=== PATIENT | female | born 1990 | race Caucasian/White ===

== ENCOUNTER 2021-09-21 10:43 | Outpatient (CLI) | payer OTHER, SELFPAY ==
[2021-09-21 11:05] LABS: Hematocrit 36.4 % (37.0-47.0); Hemoglobin 12.5 g/dL (12.0-15.0); Mean Corpuscular HGB Conc 34.3 g/dl (32-36); Mean Corpuscular Hemoglobin 30.2 pg (26-34); Mean Corpuscular Volume 87.9 fl (80-100); Mean Platelet Volume 9.9 fl (7.4-10.4); Platelet Count Result 173 k/mm3 (150-375); Red Blood Count 4.14 M/mm3 (4.2-5.4); Red Cell Distribution Width 13.7 % (11.5-14.5); White Blood Count 12.4 K/mm3 (4.5-10.0)
[2021-09-21 13:53] LABS: Rapid Plasma Reagin Non-Reactive (NonReactive)
== END 2021-09-21 10:44 | disposition home or self-care (01) ==
LOC: ANHLAB 10:46
PROVIDERS: PCP Internal Medicine Infectious Disease; Visit Provider Obstetrics & Gynecology
DX: Z34.93 Encounter for supervision of normal pregnancy, unspecified, third trimester (principal); Z3A.00 Weeks of gestation of pregnancy not specified
CPT/HCPCS: 36415; 85027; 86592; 86850; 86900; 86901

== ENCOUNTER 2021-09-22 09:52 | Inpatient (IN) | payer OTHER, SELFPAY ==
--- NOTE | 2021-08-26 14:03 | PC.NURSE ---
Verified with OR schedule and patient-C/S on 09/22/21 at 1030 Patient given requisition for lab draw on 09/21/21
--- NOTE | 2021-09-19 07:38 | PM.IMHP ---
H&P: HPI History of Present Illness Date/Time: 09/19/21 07:38 Chief Complaint: Term with previous section Narrative: /31-year-old female admitted for repeat section at term her has been relatively unremarkable. Risks and benefits of section reviewed [facility] Family History Family History Grandparent Seizures Anemia Sibling Seizures Mother Anemia Social History Social History Substance use: never Spiritual care concerns: No Meds Home Medications and Allergies Home Medications Medication Instructions Recorded Confirmed Type prenat.vits,carmelina,spc-prue-thjyn 1 tablet PO DAILY 08/26/21 08/26/21 History Allergies Allergy/AdvReac Type Severity Reaction Status Date / Time No Known Allergies Allergy Verified 08/26/21 13:37 Exam : Speculum Exam - Vagina: normal appearance of the vagina Speculum Exam - Cervix: normal appearance of the cervix Bimanual exam- vagina & uterus: other (Soft gravid uterus) Assessment and Plan Assessment and plan (1) Term : Code(s): Z34.90 - Encounter for supervision of normal , unspecified, unspecified trimester Status: Acute Assessment and Plan: Repeat low-transverse section (2) Previous section: Code(s): Z98.891 - History of uterine scar from previous surgery Status: Acute Plan Repeat low-transverse section Additional Plan Repeat low-transverse section
[2021-09-22] VITALS (45 sets, daily range): BP systolic 90–107; BP diastolic 57–82; PULSE 58–133; RESP 14–18; TEMP 36.1–37; O2SAT 98–100; BMI 32.8
--- NOTE | 2021-09-22 07:26 | WPDHPUPDATE1 ---
History and Physical Update Update Date/Time: 09/22/21 07:26 History and Physical has been reviewed, including an updated exam of the patient. There are NO changes in the patient's condition. Risks, benefits, and alternatives have been discussed and questions answered. Patient agrees to proceed with procedure.
--- NOTE | 2021-09-22 10:16 | LDADM ---
This patient, Ni Marsh, was admitted to Labor/Delivery/Recovery 118 on 09/22/21 at 09:52. Plans for labor, pain management and were discussed with patient. Patient/family oriented to hospital policies and general routines including ID bracelet, bed and alarms, visiting hours, pain management, procedures, bathroom and other care routines, personal items, smoking policy, room service/diet and guest tray routines, infant security routines, and visiting hours. Patient/Family are encouraged to report perceived risks to care and to ask questions if they do not understand what they are told or what they should do. See OBIX for further documentation.
--- NOTE | 2021-09-22 10:22 | WPDANESEPPF ---
Anes - Initial Pre Proc Eval Procedure: Operation Date: 09/22/21 12:00 Proposed Procedures p Repeat Section - Pradeep Lewis MD Date/Time: 09/22/21 10:22 Surgeon: Pradeep Lewis MD Pre Op Diagnosis: C Section Patient Data Age: 31 Gender: F Height: 1.6 m Weight: 84 kg Last Vital Signs O2 Del Method Room Air 09/22/21 10:14 Allergies Allergy/AdvReac Type Severity Reaction Status Date / Time No Known Allergies Allergy Verified 09/22/21 10:31 Home Medications Medication Instructions Recorded Confirmed Type prenat.vits,cramelina,mjs-zjxf-kerev 1 tablet PO DAILY 08/26/21 08/26/21 History Patient hx anesthesia problems: none Family hx anesthesia problems: none Results Review: All pre-operative results and documents have been reviewed as part of the pre-operative evaluation. [facility] Family History Family History Grandparent Seizures Anemia Sibling Seizures Mother Anemia Social History Social History Smoking status: Never smoker Second hand tobacco smoke exposure: No Substance use: never Spiritual care concerns: No Anes - Eval Final PreProcedure Day of Procedure 09/22/21 10:22 Patient weight: obese Heart: regular rate and rhythm Lungs: clear to auscultation and normal air movement Airway: Mallampati scale class II Neurological: alert and oriented Last oral intake: >/= 8 hours ASA classification: II Emergent: no Anesthetic plan: proceed Anesthesia type and monitoring: regional spinal and standard monitoring Results Review: All pre-operative results and documents have been reviewed as part of the pre-operative evaluation. Informed Consent: The patient's anesthetic plan and its attendant risks and benefits were discussed with the patient/family/POA. Questions were solicited and answers provided to the satisfaction of the patient/family/POA.
[2021-09-22] MEDS: LACTATED RINGERS 1,000 ML 125 ML IV CONT (10:26)
[2021-09-22] MEDS: ceFAZolin 2 GM/D5W 50 ML 2 GM/50 ML BAG IVPB (11:09)
[2021-09-22] MEDS: KETOROLAC 30 MG/ML VIAL (*BKC) 15 MG IV PUSH (11:36)
--- NOTE | 2021-09-22 11:52 | W.PM.PROC2 ---
Procedure Note - Detailed Date of Procedure 09/22/21 Pre-op Diagnosis C Section Post-op Diagnosis Same Procedure Performed Repeat low-transverse section Surgeon Pradeep Lewis MD Anesthesia Spinal Indications 31-year-old female at term with previous section Findings male 7lb 12oz with Apgars of 9 and 9 at 1 and 5minutes respectively. Normal-appearing uterus ovaries and tubes Description of Procedure patient was prepped draped and placed in the supine position. Under excellent spinal anesthetic the abdomen is entered through the previous Pfannenstiel incision. This was progressive the fascia to. The fascia was opened upward outward fashion bilaterally. Underlying muscles sharply dissected. Parietal peritoneum away cake labs have been sharp dissection carried superiorly and inferiorly down bladder. Bladder blade was placed bladder flap reformed bladder blade returned a low-transverse incision made the head delivered GRADY position nasopharynx and oropharynx were bulb suction nuchal cord checked none was noted anterior posterior shoulder delivered manually uterus delivered on the abdomen wrapped in moist towel. was given Apgars of 9 and 9. Placenta was delivered intact manually uterus delivered from the abdomen wrapped in moist towel. After assuring no membranes or debris remained in the uterus uterus closed continuous running locking 0 Vicryl lateral edge to lateral edge followed by 2nd imbricating running locking 0 Vicryl lateral edge to lateral edge. Hemostasis was assured. Tubes and ovaries appeared within normal limits uterus turned to the abdomen. Laps removed and accounted for. The hysterotomy incision inspected 1 last time to be hemostatic. The fascia closed with continuous running 0 Vicryl from lateral edge to midline bilaterally. Irrigation subcutaneous layer and the skin closed with 4 Monocryl and glue. Blood loss by QBL was 360 all sponge, needle, instrument counts correct. There were no immediate complications Estimated Blood Loss 360 Drains No Packing No Pathology None sent Complications No immediate complications Condition Stable Disposition Floor
[2021-09-22] MEDS: OXYTOCIN 30 UNITS/NS 500 ML 30 UNITS/500 ML BAG 125 UNITS IV CONT (12:45)
--- NOTE | 2021-09-22 14:10 | OBPPTRN ---
Patient transferred to post room #290 via stretcher. Support person present. Oriented to unit, room, information board, rooming in, admission packet and security measures. Patient verbalizes understanding.
--- NOTE | 2021-09-22 16:25 | PC.NURSE ---
[id number] Introductions were made, then consulted with patient to assess needs related to . Mother led the conversation with her experience feeding her so far. Encouraged understanding of the benefits of skin to skin (unwrapping infant and placing vertically on her chest), responsive feeding and how to watch for early feeding signs, frequency of feeding on demand about every 8-12 times in 24 hours (every 2-3 hours), milk production, duration of feeding, signs of adequate intake/output and how to record on the feeding sheet. Mother states infant breastfed for 15 min since transferred upstairs and she denies pain with . Reviewed watching for visual signs of effective suck/swallowing with rocking motion. Reviewed positioning and ear, shoulder, hip alignment, supporting the breast, asymmetrical latch (off-center), and leading with the chin with a big open side gape. Father of baby is reading the mom/baby guide when RN enters the room and was encouraged. Resources used to facilitate learning were used with the [visual handouts/ tool/mom and baby guide]. Mother voiced understanding of responsive feedings, stimulating with skin to skin, hand expressed colostrum, touch, talking to infant to encourage if it has been 2 -3 hours since the start of the last , to call if infant does not latch or there is discomfort with . Reported to the primary RN.
[2021-09-22] MEDS: DEXTROSE 5%/0.45% SOD CHL 1,000 ML 125 ML IV CONT (17:03)
[2021-09-22] MEDS: KETOROLAC 30 MG/ML VIAL (*BKC) IV PUSH (18:37)
[2021-09-23 04:10] VITALS: BP 105/68; PULSE 86; RESP 16; TEMP 36.4; O2SAT 98
[2021-09-23] MEDS: HYDROcodone/acetaminophen (*CRX) 5-325 MG TABLET 1 TAB PO ×3 (04:23→19:11)
[2021-09-23] MEDS: IBUPROFEN 600 MG TABLET PO ×3 (04:23→19:11)
[2021-09-23 04:33] LABS: Basophils Percent Auto 0.3 % (0.2-1.2); Eosinophils Absolute Auto 0.1 K/mm3 (0-0.3); Eosinophils Percent Auto 0.6 % (0-4.4); Hematocrit 31.6 % (37.0-47.0); Hemoglobin 10.7 g/dL (12.0-15.0); Immature Granulocyte Absolute 0.14 K/mm3 (0.00-0.031); Lymphocytes Absolute Auto 2.06 K/mm3 (0.9-3.2); Lymphocytes Percent Auto 14.5 % (18.3-44.2); Mean Corpuscular HGB Conc 33.9 g/dl (32-36); Mean Corpuscular Hemoglobin 30.2 pg (26-34); Mean Corpuscular Volume 89.3 fl (80-100); Mean Platelet Volume 9.9 fl (7.4-10.4); Neutrophils Absolute Auto 10.9 K/mm3 (1.3-6.7); Neutrophils Percent Auto 76.6 % (45.5-73.1); Platelet Count Result 156 k/mm3 (150-375); Red Blood Count 3.54 M/mm3 (4.2-5.4); Red Cell Distribution Width 13.4 % (11.5-14.5); White Blood Count 14.2 K/mm3 (4.5-10.0)
--- NOTE | 2021-09-23 06:02 | P.PNOB_ITS ---
OB - PN: Subj Subjective Date/time seen: 09/23/21 06:02 Patient comments: no complaints and pain well controlled baby status: doing well and nursing well OB - PN: Obj Data Labs CBC & Chem 7: 09/23/21 04:16 Labs: Laboratory Results - last 24 hr 09/23/21 04:16 WBC 14.2 H RBC 3.54 L Hgb 10.7 L Hct 31.6 L MCV 89.3 MCH 30.2 MCHC 33.9 RDW 13.4 Plt Count 156 MPV 9.9 Immature Gran % (Auto) 1.0 H Neut % (Auto) 76.6 H Lymph % (Auto) 14.5 L [place] % (Auto) 7.0 Eos % (Auto) 0.6 Baso % (Auto) 0.3 Lymph # (Auto) 2.06 [place] # (Auto) 1.0 H Eos # (Auto) 0.1 Baso # (Auto) 0.0 Abs Immat Gran (auto) 0.14 H Absolute Neuts (auto) 10.9 H Absolute Nucleated RBC 0.0 Nucleated RBC % 0.0 OB - PN A/P Assessment and Plan (1) Previous section: Code(s): Z98.891 - History of uterine scar from previous surgery Status: Acute (2) Term : Code(s): Z34.90 - Encounter for supervision of normal , unspecified, unspecified trimester Status: Acute (3) Postoperative pain: Code(s): G89.18 - Other acute postprocedural pain Status: Acute Plan day: 1 Plan: routine care Time Spent With Patient Time: Total time spent is greater than 50% in coordination of care (as documented) at patient's floor/unit and/or counseling patient: Time with patient: less than 15 minutes Exam GI: Inspection: normal to inspection and incision (Clean dry and intact) Auscultation: normal bowel sounds
--- NOTE | 2021-09-23 07:43 | WPDANESPN ---
Anes - Prog Note Post-Op Date/Time: 09/23/21 07:43 Cardiovascular status: normal Respiratory status: normal Airway patency: baseline Mental status: baseline Post-Op hydration status: normal Vital Signs: Last Vital Signs Temp 36.4 C 09/23/21 04:10 Pulse 86 09/23/21 04:10 Resp 16 09/23/21 04:10 BP 105/68 09/23/21 04:10 Pulse Ox 98 09/23/21 04:10 O2 Del Method Room Air 09/22/21 19:50 Pain Score (VAS): 0 I/O: Intake & Output 09/22/21 09/22/21 09/23/21 15:59 23:59 07:59 Intake Total 700 800 Output Total 627 7862 0600 Balance -222 -3925 -372 Laboratory Tests 09/23/21 04:16 09/23/21 04:16 WBC 14.2 H RBC 3.54 L Hgb 10.7 L Hct 31.6 L MCV 89.3 MCH 30.2 MCHC 33.9 RDW 13.4 Plt Count 156 MPV 9.9 Immature Gran % (Auto) 1.0 H Neut % (Auto) 76.6 H Lymph % (Auto) 14.[address] [place] [place] % (Auto) 7.0 Eos % (Auto) 0.6 Baso % (Auto) 0.3 Lymph # (Auto) 2.06 [place] # (Auto) 1.0 H Eos # (Auto) 0.1 Baso # (Auto) 0.0 Abs Immat Gran (auto) 0.14 H Absolute Neuts (auto) 10.9 H Absolute Nucleated RBC 0.0 Nucleated RBC % 0.0 Post-procedural complaints: none Patient Feedback: Patient satisfied with anesthetic care.
--- NOTE | 2021-09-23 07:43 | WPDANLDNPN2 ---
Anes-Prog Note L&D-Neuraxial Date/Time: 09/23/21 07:43 Neuraxial medications: intrathecal PF morphine Opiod-related complaints: none Patient feedback: Patient satisfied with post-operative pain management.
[2021-09-23 09:30] VITALS: BP 102/69; PULSE 95; RESP 18; TEMP 36.6; O2SAT 99
[2021-09-23] MEDS: MULTIVIT/MIN/PREN/FOL AC/IRON TABLET 1 TAB PO (10:37)
[2021-09-23] MEDS: DOCUSATE SODIUM 100 MG CAPSULE PO ×2 (10:39→17:31)
[2021-09-23 18:49] VITALS: BP 96/66; PULSE 85; RESP 16; TEMP 37; O2SAT 100
[2021-09-24 07:30] VITALS: BP 102/66; PULSE 86; RESP 16; TEMP 36.7; O2SAT 100
[2021-09-24] MEDS: SIMETHICONE 80 MG TAB.CHEW PO (07:35)
[2021-09-24] MEDS: DOCUSATE SODIUM 100 MG CAPSULE PO (07:35)
[2021-09-24] MEDS: IBUPROFEN 600 MG TABLET PO (07:35)
[2021-09-24] MEDS: HYDROcodone/acetaminophen (*CRX) 5-325 MG TABLET 1 TAB PO (07:35)
[2021-09-24] MEDS: MULTIVIT/MIN/PREN/FOL AC/IRON TABLET 1 TAB PO (07:35)
--- NOTE | 2021-09-24 08:04 | PM.DS ---
DS: Admitting Diagnosis Discharge Date 09/24/2021 Admitting Diagnosis term previous section DS: Discharge Diagnosis Discharge Diagnosis (1) Previous section: Code(s): Z98.891 - History of uterine scar from previous surgery Status: Acute (2) Term : Code(s): Z34.90 - Encounter for supervision of normal , unspecified, unspecified trimester Status: Acute DS: Summary Hospital Course Reason for hospitalization: repeat section Hospital Course: patient was admitted and underwent repeat low-transverse section. Her 2 day course was unremarkable. She remained afebrile. She was up, voiding without difficulty, ambulating, voiding without difficulty and generally without complaints. Time Spent with Patient Time attestation: Total time spent providing and/or coordinating discharge services: Discharge Plan Discharge Attending physician on discharge: Pradeep Webb Discharging Clinician: Pradeep Webb Patient Disposition: Home, Self-Care Activity: may shower, no straining and pelvic rest Diet: heart healthy Wound Care Instructions: follow printed instructions Stand Alone Forms: General Discharge Instructions Follow-up/Referrals: Pradeep Webb MD [Physician] - Discharge Medications: Continued #2 Tablet 1 tablet PO DAILY Date of admission: 09/22/21 09:52 Primary Care Provider: Sierra,Demond Steward Admitting Provider: Pradeep Webb Attending physician on admission: Pradeep Webb Condition: Stable
[2021-09-25 15:30] VITALS: BP 107/72; PULSE 93; RESP 20; TEMP 36.8; O2SAT 99
== END 2021-09-24 14:43 | disposition home or self-care (01) | DRG 788 ==
LOC: ANHLDR 09:55 → ANHOB2 14:48
PROVIDERS: Admitting Provider Obstetrics & Gynecology; PCP Internal Medicine Infectious Disease; Visit Provider Obstetrics & Gynecology
PROC: 10D00Z1 Extraction of Products of Conception, Low, Open Approach (ICD-10-PCS; CPT 59514; principal; 2021-09-22 12:00)
DX: O34.219 Maternal care for unspecified type scar from previous cesarean delivery (principal); Z3A.39 39 weeks gestation of pregnancy; Z37.0 Single live birth
CPT/HCPCS: 36415; 85025; 85027; 86592; 86850; 86900; 86901; A9270; J0690; J1885; J2274; J2405; J2590; J7120